=== PATIENT | male | born 1975 | race African-American/Black ===

== ENCOUNTER 2021-09-03 07:44 | Emergency (ER) | payer MEDICAID ==
[~2021-09-03] VITALS: Ht 182.9 cm; Wt 86.0 kg
[2021-09-03] MEDS ORDERED: LEVETIRACETAM 1000MG PREMIX 100 ML IV ONE (09:00)
[2021-09-03 09:33] LABS: BASOPHILS % 0.3 % (0.0-2.0); EOSINOPHILS % 0.7 % (0.0-5.0); HEMATOCRIT. 43.9 % (42.0-52.0); HEMOGLOBIN. 14.8 g/dL (14.0-18.0); LYMPHOCYTES % 11.1 % (20.0-50.0); MEAN CORPUSCULAR HEMOGLOBIN 28.5 pg (28.0-32.0); MEAN CORPUSCULAR VOLUME 84.8 fL (80.0-94.0); MEAN PLATELET VOLUME 7.9 fl (7.4-10.4); MONOCYTES % 9.9 % (2.0-8.0); PLATELET 271 x1000/uL (130-400); RED BLOOD CELL COUNT 5.18 mill/uL (4.7-6.1); RED CELL DISTRIBUTION WIDTH 15.3 % (11.6-14.6)
[2021-09-03 09:43] LABS: CHLORIDE 106 mEq/L (98-107)
[2021-09-03 09:49] VITALS: BP 157/100
[2021-09-03] MEDS ORDERED: KEPP500 MT (10:43)
== END 2021-09-03 11:08 | disposition home or self-care (01) ==
LOC: ER 07:44
DX: R56.9 Unspecified convulsions (principal); R51.9 Headache, unspecified; F17.290 Nicotine dependence, other tobacco product, uncomplicated; F12.10 Cannabis abuse, uncomplicated
CPT/HCPCS: 36415; 70450; 80053; 85025; 93005; 96365; 99285; J1953

== ENCOUNTER 2023-01-19 18:40 | Emergency (ER) | payer MEDICAID ==
[~2023-01-19] VITALS: Ht 177.8 cm; Wt 81.0 kg
[~2023-01-19 18:40] MED LIST: KEPP500 MT
[2023-01-19 18:45] VITALS: BP 136/88; PULSE 100; RESP 16; TEMP 98.4; O2SAT 98
[2023-01-19] MEDS ORDERED: KEPP500 MT (19:03)
== END 2023-01-19 19:35 | disposition home or self-care (01) ==
LOC: ER 18:45
DX: R56.9 Unspecified convulsions (principal); F12.90 Cannabis use, unspecified, uncomplicated
CPT/HCPCS: 99283

== ENCOUNTER 2023-05-20 06:59 | Emergency (ER) | payer MEDICAID ==
[~2023-05-20] VITALS: Ht 182.9 cm; Wt 79.4 kg
[2023-05-20 07:28] VITALS: O2SAT 100
[2023-05-20] MEDS: KETOROLAC 15MG/ML VIAL IM ONE (09:15)
[2023-05-20] MEDS ORDERED: ACET-2708 MT (10:25)
[2023-05-20] MEDS ORDERED: NAPR-681 MT (10:25)
[2023-05-20 10:50] VITALS: BP 141/88; PULSE 65; RESP 18; TEMP 98.7
== END 2023-05-20 11:23 | disposition home or self-care (01) ==
LOC: ER 06:59
DX: S62.306A Unspecified fracture of fifth metacarpal bone, right hand, initial encounter for closed fracture (principal); F12.10 Cannabis abuse, uncomplicated; Z86.59 Personal history of other mental and behavioral disorders; W22.09XA Striking against other stationary object, initial encounter; Y93.89 Activity, other specified; Y92.89 Other specified places as the place of occurrence of the external cause; Y99.8 Other external cause status
CPT/HCPCS: 99284; 73110; 73130; 29125; 96372; J1885

== ENCOUNTER 2023-06-03 08:01 | Emergency (ER) | payer MEDICAID ==
[~2023-06-03] VITALS: Ht 182.9 cm; Wt 79.0 kg
[~2023-06-03 08:01] MED LIST changes: +ACET-2708 MT; +NAPR-681 MT
[2023-06-03 08:03] VITALS: TEMP 97.2; O2SAT 97
[2023-06-03 08:35] VITALS: BP 163/78; PULSE 78; RESP 19
[2023-06-03] MEDS: LEVETIRACETAM 1000MG PREMIX 100 ML IV ONE (08:44)
[2023-06-03] MEDS: LORAZEPAM 2MG/ML INJ IV ONE (09:00)
[2023-06-03] MEDS: LEVETIRACETAM 500MG PREMIX 100 ML IV ONE (09:31)
[2023-06-03 09:45] LABS: BASOPHILS % 0.4 % (0.0-2.0); EOSINOPHILS % 0.2 % (0.0-5.0); HEMATOCRIT. 40.7 % (42.0-52.0); HEMOGLOBIN. 13.7 g/dL (14.0-18.0); LYMPHOCYTES % 9.6 % (20.0-50.0); MEAN CORPUSCULAR HEMOGLOBIN 28.3 pg (28.0-32.0); MEAN CORPUSCULAR HGB CONC 33.6 g/dL (31.0-37.0); MEAN CORPUSCULAR VOLUME 84.2 fL (80.0-94.0); MEAN PLATELET VOLUME 7.6 fl (7.4-10.4); MONOCYTES % 5.7 % (2.0-8.0); NEUTROPHILS % 84.1 % (40.0-76.0); PLATELET 291 x1000/uL (130-400); RED BLOOD CELL COUNT 4.84 mill/uL (4.7-6.1); RED CELL DISTRIBUTION WIDTH 14.3 % (11.6-14.6); WHITE BLOOD COUNT 10.8 x1000/uL (4.5-11.0)
[2023-06-03 10:03] LABS: ALANINE AMINOTRANSFERASE 10 IU/L (10-49); ASPARTATE AMINOTRANSFERASE 21 IU/L (<34); BILIRUBIN TOTAL 0.3 mg/dL (0.1-1.0); CALCIUM 8.2 mg/dL (8.7-10.4); CARBON DIOXIDE 23 mEq/L (21-32); CHLORIDE 109 mEq/L (98-107); GLUCOSE 164 mg/dL (70-105); POTASSIUM 4.2 mEq/L (3.5-5.1); PROTEIN TOTAL 6.6 g/dL (6.0-8.3); SODIUM 139 mEq/L (136-145); UREA NITROGEN BLOOD 11 mg/dL (9-23)
[2023-06-03 10:08] LABS: ETHANOL BLOOD < 10 mg/dL (<10)
[2023-06-03 10:39] LABS: CLARITY URINE CLEAR (CLEAR); COLOR URINE YELLOW (YELLOW); GLUCOSE URINE NEGATIVE (NEGATIVE); KETONES URINE NEGATIVE (NEGATIVE); LEUKOCYTE ESTERASE URINE NEGATIVE (NEGATIVE); NITRITE URINE NEGATIVE (NEGATIVE); OCCULT BLOOD URINE TRACE (NEGATIVE); PROTEIN URINE 1+ (NEGATIVE); SPECIFIC GRAVITY URINE 1.013 (1.005-1.030); UROBILINOGEN URINE 0.2 E.U./dL (0.2-1.0)
[2023-06-03 11:11] LABS: FINE GRANULAR CASTS URINE 0-5 /lpf
[2023-06-03 11:12] LABS: SQUAMOUS EPITHELIAL CELL URINE FEW /lpf (RARE/1+); WBC URINE 0-2 /hpf (0-2)
[2023-06-03 11:13] LABS: BACTERIA URINE TRACE; MUCUS URINE 1+ /lpf (NONE/TRACE); RBC URINE NONE SEEN /hpf (0-2)
[2023-06-03 12:58] LABS: *AMPHETAMINES SCREEN URINE NEGATIVE (NEGATIVE); *BARBITURATES SCREEN URINE NEGATIVE (NEGATIVE); *BENZODIAZEPINES SCREEN URINE PRESUMPTIVE POSITIVE (NEGATIVE); *COCAINE SCREEN URINE NEGATIVE (NEGATIVE); CANNABINOID URINE SCREEN PRESUMPTIVE POSITIVE (NEGATIVE); METHADONE URINE SCREEN Neg (NEGATIVE); OPIATES URINE SCREEN NEGATIVE (NEGATIVE); PHENCYCLIDINE URINE SCREEN NEGATIVE (NEGATIVE)
[2023-06-03 13:16] LABS: ECSTASY MDMA SCREEN URINE NEGATIVE (NEGATIVE)
[2023-06-03] MEDS ORDERED: KEPP500 MT (14:08)
== END 2023-06-03 15:05 | disposition home or self-care (01) ==
LOC: ER 08:01
DX: G40.909 Epilepsy, unspecified, not intractable, without status epilepticus (principal); F12.10 Cannabis abuse, uncomplicated
CPT/HCPCS: 80053; 80305; 81003; 80320; 85025; 36415; 96365; 96375; 99284; J1953; J2060; Z7610; G0480

== ENCOUNTER 2023-07-08 05:07 | Emergency (ER) | payer MEDICAID ==
[~2023-07-08] VITALS: Ht 175.3 cm; Wt 77.0 kg
[2023-07-08 05:13] VITALS: O2SAT 96
[2023-07-08 06:19] VITALS: BP 140/90; PULSE 68; RESP 17; TEMP 98.2
[2023-07-08] MEDS: LEVETIRACETAM 1000MG PREMIX 100 ML IV ONE (06:52)
[2023-07-08 06:53] LABS: BASOPHILS % 0.3 % (0.0-2.0); EOSINOPHILS % 0.8 % (0.0-5.0); HEMATOCRIT. 39.2 % (42.0-52.0); HEMOGLOBIN. 13.1 g/dL (14.0-18.0); LYMPHOCYTES % 11.5 % (20.0-50.0); MEAN CORPUSCULAR HEMOGLOBIN 28.5 pg (28.0-32.0); MEAN CORPUSCULAR HGB CONC 33.4 g/dL (31.0-37.0); MEAN CORPUSCULAR VOLUME 85.3 fL (80.0-94.0); MEAN PLATELET VOLUME 8.1 fl (7.4-10.4); MONOCYTES % 6.1 % (2.0-8.0); NEUTROPHILS % 81.3 % (40.0-76.0); PLATELET 280 x1000/uL (130-400); RED CELL DISTRIBUTION WIDTH 14.7 % (11.6-14.6); WHITE BLOOD COUNT 6.2 x1000/uL (4.5-11.0)
[2023-07-08 06:58] LABS: CHLORIDE 109 mEq/L (98-107); POTASSIUM 4.4 mEq/L (3.5-5.1); SODIUM 140 mEq/L (136-145)
[2023-07-08 06:59] LABS: CALCIUM 9.3 mg/dL (8.7-10.4); CARBON DIOXIDE 27 mEq/L (21-32)
[2023-07-08 07:04] LABS: GLUCOSE 134 mg/dL (70-105); UREA NITROGEN BLOOD 10 mg/dL (9-23)
[2023-07-08 07:06] LABS: ALANINE AMINOTRANSFERASE 12 IU/L (10-49); ASPARTATE AMINOTRANSFERASE 23 IU/L (<34); BILIRUBIN TOTAL 0.4 mg/dL (0.1-1.0)
== END 2023-07-08 10:00 | disposition left against medical advice (07) ==
LOC: ER 05:13
DX: R56.9 Unspecified convulsions (principal); F12.10 Cannabis abuse, uncomplicated
CPT/HCPCS: 99284; 70450; 80053; 82962; 85025; 36415; J1953

== ENCOUNTER 2023-10-22 09:14 | Emergency (ER) | payer MEDICAID ==
[~2023-10-22] VITALS: Ht 182.9 cm; Wt 95.0 kg
[2023-10-22 09:18] VITALS: O2SAT 100
[2023-10-22] MEDS ORDERED: LEVETIRACETAM 500MG PREMIX 100 ML IV ONE ×2 (09:30)
[2023-10-22] MEDS: LEVETIRACETAM 1000MG PREMIX 100 ML IV NR (09:46)
[2023-10-22] MEDS: HALOPERIDOL LACTATE 5MG/ML VIAL IM ONE (09:46)
[2023-10-22 09:49] LABS: BASOPHILS % 0.7 % (0.0-2.0); EOSINOPHILS % 2.3 % (0.0-5.0); HEMATOCRIT. 41.1 % (42.0-52.0); HEMOGLOBIN. 13.3 g/dL (14.0-18.0); MEAN CORPUSCULAR HEMOGLOBIN 27.7 pg (28.0-32.0); MEAN CORPUSCULAR HGB CONC 32.4 g/dL (31.0-37.0); MEAN CORPUSCULAR VOLUME 85.6 fL (80.0-94.0); MEAN PLATELET VOLUME 7.5 fl (7.4-10.4); MONOCYTES % 9.1 % (2.0-8.0); NEUTROPHILS % 62.9 % (40.0-76.0); PLATELET 269 x1000/uL (130-400); RED CELL DISTRIBUTION WIDTH 15.4 % (11.6-14.6); WHITE BLOOD COUNT 5.8 x1000/uL (4.5-11.0)
[2023-10-22 10:01] LABS: CARBON DIOXIDE 30 mEq/L (21-32); CHLORIDE 108 mEq/L (98-107); POTASSIUM 4.3 mEq/L (3.5-5.1); SODIUM 140 mEq/L (136-145)
[2023-10-22 10:02] LABS: CALCIUM 8.9 mg/dL (8.7-10.4)
[2023-10-22 10:06] LABS: CREATININE 0.9 mg/dL (0.6-1.3); GLUCOSE 123 mg/dL (70-105)
[2023-10-22 10:07] LABS: UREA NITROGEN BLOOD 9 mg/dL (9-23)
[2023-10-22 10:08] LABS: ALANINE AMINOTRANSFERASE 19 IU/L (10-49); ALBUMIN 4.3 g/dL (3.2-4.8); ASPARTATE AMINOTRANSFERASE 19 IU/L (<34); CREATINE KINASE 199 IU/L (46-171)
[2023-10-22 10:09] LABS: BILIRUBIN TOTAL 0.3 mg/dL (0.1-1.0); PROTEIN TOTAL 7.1 g/dL (6.0-8.3)
[2023-10-22] MEDS: LEVETIRACETAM 3,500 MG in SODIUM CHLORIDE 0.9% 250 ML IV NR (10:30)
[2023-10-22] MEDS: LACTATED RINGERS 1,000 ML IV SCH (10:31)
[2023-10-22 12:30] VITALS: BP 162/106; PULSE 53; RESP 16; TEMP 98.6
== END 2023-10-22 12:40 | disposition left against medical advice (07) ==
LOC: ER 09:19 → EDBEDREQTM 10:33 → EDBEDREQ 10:33 → ER 12:40
DX: G40.801 Other epilepsy, not intractable, with status epilepticus (principal); F12.90 Cannabis use, unspecified, uncomplicated
CPT/HCPCS: 80053; 82550; 85025; 36415; 93005; 96365; 96366; 96372; 99285; J1953; J1630; J7050; Z7610 ×2

== ENCOUNTER 2023-10-28 09:37 | Emergency (ER) | payer MEDICAID ==
[~2023-10-28] VITALS: Ht 182.9 cm; Wt 86.0 kg
[2023-10-28 09:41] VITALS: O2SAT 96
[2023-10-28 10:04] VITALS: BP 133/87; PULSE 83; RESP 16; TEMP 36.89184; O2SAT 97
== END 2023-10-28 11:33 | disposition home or self-care (01) ==
LOC: ER 09:37
DX: G40.909 Epilepsy, unspecified, not intractable, without status epilepticus (principal); F12.90 Cannabis use, unspecified, uncomplicated
CPT/HCPCS: 99283

== ENCOUNTER 2023-12-06 12:15 | Emergency (ER) | payer MEDICAID ==
[~2023-12-06] VITALS: Ht 182.9 cm; Wt 100.0 kg
[2023-12-06 12:16] VITALS: O2SAT 100
[2023-12-06] MEDS: LEVETIRACETAM 500MG PREMIX 100 ML IV ONE ×2 (12:34→12:47)
[2023-12-06 12:39] LABS: BASOPHILS % 0.5 % (0.0-2.0); DIFFERENTIAL COMMENT 0; EOSINOPHILS % 2.4 % (0.0-5.0); HEMATOCRIT. 46.1 % (42.0-52.0); HEMOGLOBIN. 14.2 g/dL (14.0-18.0); MEAN CORPUSCULAR HEMOGLOBIN 27.6 pg (28.0-32.0); MEAN CORPUSCULAR HGB CONC 30.8 g/dL (31.0-37.0); MEAN CORPUSCULAR VOLUME 89.4 fL (80.0-94.0); MEAN PLATELET VOLUME 7.8 fl (7.4-10.4); MONOCYTES % 10.8 % (2.0-8.0); NEUTROPHILS % 48.3 % (40.0-76.0); PLATELET 280 x1000/uL (130-400); RED BLOOD CELL COUNT 5.15 mill/uL (4.7-6.1); WHITE BLOOD COUNT 9.5 x1000/uL (4.5-11.0)
[2023-12-06] MEDS: SODIUM CHLORIDE 0.9% 1,000 ML IV ONE (12:46)
[2023-12-06 12:55] LABS: CHLORIDE 106 mEq/L (98-107); SODIUM 140 mEq/L (136-145)
[2023-12-06 12:56] LABS: CALCIUM 9.8 mg/dL (8.7-10.4); CARBON DIOXIDE 12 mEq/L (21-32)
[2023-12-06 13:01] LABS: GLUCOSE 155 mg/dL (70-105); UREA NITROGEN BLOOD 9 mg/dL (9-23)
[2023-12-06 13:06] LABS: ETHANOL BLOOD < 10 mg/dL (<10)
[2023-12-06 13:07] LABS: CREATININE 1.2 mg/dL (0.6-1.3)
[2023-12-06 15:00] VITALS: TEMP 36.83628
[2023-12-06 15:57] LABS: CLARITY URINE CLEAR (CLEAR); COLOR URINE YELLOW (YELLOW); GLUCOSE URINE NEGATIVE (NEGATIVE); KETONES URINE NEGATIVE (NEGATIVE); LEUKOCYTE ESTERASE URINE NEGATIVE (NEGATIVE); NITRITE URINE NEGATIVE (NEGATIVE); OCCULT BLOOD URINE NEGATIVE (NEGATIVE); PH URINE 5.5 (4.5-8.0); PROTEIN URINE 2+ (NEGATIVE); SPECIFIC GRAVITY URINE 1.013 (1.005-1.030); UROBILINOGEN URINE 0.2 E.U./dL (0.2-1.0)
[2023-12-06 16:13] LABS: *AMPHETAMINES SCREEN URINE NEGATIVE (NEGATIVE); *BARBITURATES SCREEN URINE NEGATIVE (NEGATIVE); *BENZODIAZEPINES SCREEN URINE PRESUMPTIVE POSITIVE (NEGATIVE); *COCAINE SCREEN URINE NEGATIVE (NEGATIVE); METHADONE URINE SCREEN NEGATIVE (NEGATIVE); OPIATES URINE SCREEN NEGATIVE (NEGATIVE); PHENCYCLIDINE URINE SCREEN NEGATIVE (NEGATIVE)
[2023-12-06 16:14] LABS: CANNABINOID URINE SCREEN PRESUMPTIVE POSITIVE (NEGATIVE); ECSTASY MDMA SCREEN URINE NEGATIVE (NEGATIVE)
[2023-12-06 16:18] LABS: BACTERIA URINE 1+; RBC URINE NONE SEEN /hpf (0-2); SQUAMOUS EPITHELIAL CELL URINE RARE /lpf (RARE/1+); WBC URINE 0-2 /hpf (0-2)
[2023-12-06 17:46] LABS: BG BASE EXCESS 2.2 mmol/L (-2.0-3.0); BG CARBOXYHEMOGLOBIN 1.4 % (0.5-1.5); BG DEOXYHEMOGLOBIN 30.5 % (0.0-5.0); BG HCO3 ACT 27.6 mmol/L (21.0-28.0); BG METHEMOGLOBIN 0.3 % (0.5-1.5); BG OXYHEMOGLOBIN 67.8 % (94.0-98.0); BG PCO2 45.5 mmHg (35.0-48.0); BG SAMPLE SITE VBG - N/A; BG TOTAL HEMOGLOBIN 15.1 g/dL (13.5-17.5)
[2023-12-06 19:53] VITALS: BP 148/101; PULSE 86; RESP 16; O2SAT 95
== END 2023-12-06 19:53 | disposition home or self-care (01) ==
LOC: ER 12:15
DX: R56.9 Unspecified convulsions (principal); F12.90 Cannabis use, unspecified, uncomplicated; Z79.899 Other long term (current) drug therapy; Z91.148 Patient's other noncompliance with medication regimen for other reason
CPT/HCPCS: 80305; 80048; 81003; 80320; 85025; 36415; 71045; 82805; 82375; 82803; 99284; 36600; J1953; J7030; Z7610; G0480